=== PATIENT | female | born 1960 | race Caucasian/White ===

== ENCOUNTER 2017-04-04 07:56 | Day surgery (SDC) | payer OTHER ==
[~2017-04-04 07:56] MED LIST: Midazolam 1 MG/ML 2 ML SDV ONE; fentaNYL 100 MCG/2 ML SDV ONE
[2017-04-04] MEDS ORDERED: fentaNYL 100 MCG/2 ML SDV IV ONE ×5 (07:57→08:54)
[2017-04-04] MEDS ORDERED: Midazolam 1 MG/ML 2 ML SDV IV ONE ×7 (07:57→08:52)
[2017-04-04] MEDS ORDERED: Lactated Ringers 1,000 ML IV SCH (08:30)
[2017-04-04] MEDS ORDERED: Midazolam 1 MG/ML 2 ML SDV ONE (08:58)
[2017-04-04 10:50] VITALS: BP 108/65
--- NOTE | 2017-04-04 13:35 | OR ---
DATE: 04/04/2017 PREOPERATIVE DIAGNOSIS: Personal history of prior colon polyps. POSTOPERATIVE DIAGNOSIS: Personal history of prior colon polyps. PROCEDURES: Total colonoscopy with snare excision of a small sigmoid polyp. ANESTHESIA: Conscious sedation with IV Versed and fentanyl. SPECIMEN: Sigmoid polyp. OPERATIVE FINDINGS: Normal colonoscopy except for small 2 to 3 mm sigmoid polyp. RECOMMENDATION: Follow up screening colonoscopy for polyp surveillance in 5 years. INDICATION FOR PROCEDURE: This 56-year-old female had a colonoscopy the last year or two that showed a polyp. She presents for earlier followup than normal. PROCEDURE IN DETAIL: After adequate preparation, a colonoscope was inserted into the rectum. This was easily passed all the way to the cecum. Confirmation of the cecum was made by visualization of the ileocecal valve, the light shining through the right lower quadrant, and by palpation. The bowel prep was very good. On withdrawal of the scope, the only abnormality noted was a 3-mm polyp in the midsigmoid colon. A small snare was placed around this. The polyp was clipped off and retrieved for pathological evaluation. Rectal examination is normal. Air was suctioned from the colon, and the scope was removed. [facility] /[id number]
== END 2017-04-04 10:35 | disposition home or self-care (01) ==
LOC: DL.ENDO 07:56
PROVIDERS: ATTEND Surgery
DX: Z12.11 Encounter for screening for malignant neoplasm of colon (principal); K63.5 Polyp of colon; Z86.010 Personal history of colon polyps; Z91.018 Allergy to other foods
CPT/HCPCS: 45385; J2250; J3010; J7120

== ENCOUNTER 2024-06-04 21:29 | Emergency (ER) | payer SELFPAY ==
[2024-06-04] MEDS: Sodium Chloride 0.9% 10 ML Syringe FLUSH PRN (21:35)
[2024-06-04 21:45] LABS: BASOPHILS PERCENT AUTO 0.4 % (0.0-1.0); EOSINOPHILS PERCENT AUTO 8.4 % (1.0-3.0); HEMATOCRIT 40.6 % (37.0-47.0); HEMOGLOBIN 13.5 g/dL (12.0-16.0); LYMPHOCYTES PERCENT AUTO 36.5 % (20.5-50.1); MEAN CORPUSCULAR HEMOGLOBIN 31.5 pg (27.0-34.0); MEAN CORPUSCULAR HGB CONC 33.3 g/dL (33.0-35.0); MEAN CORPUSCULAR VOLUME 94.6 fL (80-100); MONOCYTES PERCENT AUTO 11.3 % (2-8); NEUTROPHILS PERCENT AUTO 43.4 % (42.2-75.2); PLATELET COUNT,PLT 308 10^3/uL (150-450); RED BLOOD CELL COUNT 4.29 10^6/uL (4.2-5.4); WHITE BLOOD CELL COUNT,WBC 9.6 10^3/uL (5.0-10.0)
[2024-06-04] MEDS: MVI, Adult with Vitamin K 10 ML, Folic Acid 1 MG, Thiamine 100 MG in Lactated Ringers 1... IV ONE (21:54)
[2024-06-04 22:09] LABS: LACTIC ACID 1.8 mmol/L (0.4-2.0)
[2024-06-04 22:13] LABS: A/G RATIO 1.1; ALANINE AMINOTRANSFERASE,ALT 14 U/L (14-59); ALKALINE PHOSPHATASE 54 U/L (46-116); ANION GAP 16.7 mEq/L (7-13); ASPARTATE AMNIOTRANSFERASE,AST 12 U/L (15-37); BILIRUBIN TOTAL 0.1 mg/dL (0.2-1.0); BLOOD UREA NITROGEN,BUN 34 mg/dL (7-18); BUN/CREATININE RATIO 27.2 (No establ ref range); C-REACTIVE PROTEIN 0.68 ng/dL (<=0.50); CALCIUM 8.9 mg/dL (8.5-10.1); CARBON DIOXIDE,CO2 25 mmol/L (21-32); CHLORIDE,CL 104 mmol/L (98-107); CREATININE 1.25 mg/dL (0.55-1.02); EST CRCL DRUG DOSING (CG) 34.37 mL/min; GLUCOSE RANDOM 89 mg/dL (70-99); MAGNESIUM 2.2 mg/dL (1.8-2.4); POTASSIUM,K 3.7 mmol/L (3.5-5.1); PROTEIN TOTAL,TP 7.5 g/dL (6.4-8.2); SODIUM,NA 142 mmol/L (136-145)
[2024-06-04 22:15] LABS: ACETAMINOPHEN 0 ug/mL (10-30 (Therapeutic)); ESTIMATED GFR 49 mL/min (>=60)
[2024-06-04 22:16] LABS: ETHANOL BLOOD MEDICAL 444 mg/dL (0)
[2024-06-04 22:21] LABS: PROTHROMBIN TIME 9.9 SEC (9.0-12.0); PTT,PARTIAL THROMBOPLSTIN TIME 25.6 SEC (22.0-34.0)
[2024-06-04 23:08] LABS: AMPHETAMINES,URINE NEGATIVE (NEGATIVE); BARBITURATES,URINE NEGATIVE (NEGATIVE); BENZODIAZEPINE,URINE NEGATIVE (NEGATIVE); MDMA (ECSTASY), URINE NEGATIVE (NEGATIVE); METHADONE,URINE NEGATIVE (NEGATIVE); METHAMPHETAMINES,URINE NEGATIVE (NEGATIVE); OPIATES,URINE NEGATIVE (NEGATIVE); OXYCODONE,URINE NEGATIVE (NEGATIVE); PHENCYCLIDINE,URINE NEGATIVE (NEGATIVE); TCA,URINE NEGATIVE (NEGATIVE)
[2024-06-04 23:09] LABS: APPEARANCE,URINE CLEAR (CLEAR); BILIRUBIN,URINE NEGATIVE (NEGATIVE); COLOR,URINE YELLOW (YELLOW); GLUCOSE,URINE NEGATIVE (NEGATIVE); KETONES,URINE NEGATIVE (NEGATIVE); LEUKOCYTE ESTERASE,URINE NEGATIVE (NEGATIVE); NITRITE,URINE NEGATIVE (NEGATIVE); OCCULT BLOOD,URINE NEGATIVE (NEGATIVE); PH,URINE 5.5 (5.0-9.0); PROTEIN,URINE NEGATIVE (NEGATIVE); UROBILINOGEN,URINE 0.2 mg/dL (0.2-1.0)
[2024-06-04] MEDS: Sodium Chloride 0.9% 1,000 ML IV ONE (23:27)
[2024-06-05] MEDS: Sodium Chloride 0.9% 1,000 ML IV ONE (00:36)
[2024-06-05] MEDS: cefTRIAXone 2 GM in Sodium Chloride 0.9% 100 ML IV ONE (01:15)
[2024-06-05] MEDS: Lactated Ringers 1,000 ML IV SCH (03:51)
[2024-06-05] MEDS: Iopamidol 612 MG/ML 100 ML Bottle IVPUSH ONE (04:59)
[2024-06-05 06:53] VITALS: BP 110/71
[2024-06-05 08:31] VITALS: PULSE 74
== END 2024-06-05 11:37 | disposition home or self-care (01) ==
LOC: DL.ED 21:29
DX: F10.129 Alcohol abuse with intoxication, unspecified (principal); F43.21 Adjustment disorder with depressed mood; F32.9 Major depressive disorder, single episode, unspecified; I10 Essential (primary) hypertension; Z79.899 Other long term (current) drug therapy; Z88.8 Allergy status to other drugs, medicaments and biological substances; Y90.7 Blood alcohol level of 200-239 mg/100 ml
CPT/HCPCS: 36415; 70450; 71045; 71260; 72125; 74177; 80053; 80143; 80179; 80305; 80307; 81003; 82140; 82947; 83605; 83735; 84484; 85025; 85610; 85730; 86140; 87040; 96361; 96365; 96366; 96367; 99285; J0696; J3411; J7030; J7120; Q9967; J3490